=== PATIENT | female | born 1955 | race Caucasian/White ===

== ENCOUNTER → 2016-12-28 | Emergency (ER) | payer OTHER ==
[~2016-12-28] VITALS: Ht 162.5 cm; Wt 90.7 kg
[~2016-12-28] MED LIST: ALBUTEROL0.09 MG/A2 IH; AMBIEN5 MG PO; ARTHROTEC50 MG PO; ATIVAN1 MG PO; B COMPLETE1 EACH PO; BACTRIM DS 8001 TAB PO; BENTYL10 MG PO; CEVIMELINE HCL 30 MG; CIPRO500 MG PO; COREG12.5 MG PO; CYCLOBENZAPRINE5 M3 PO; CYMBALTA30 MG PO; CYMBALTA60 MG PO; DAYPRO600 M1 PO; DESYREL100 MG PO; DICLOFENAC SOD75 MG PO; DULOXETINE HCL DR 60; EVOXAC30 MG PO; FLAGYL500 MG PO; FLEXERIL10 MG PO; FLEXERIL5 MG PO; FLUTICASON0.05 MG/Ac NAS; FUROSEMIDE40 MG PO; GABAPENTIN600 MG PO; HYDROCODONE BIT1 T11 PO; KEFLEX500 MG PO; KLOR-CON M2020 ME1 PO; LEVOTHYROXIN0.125 M1 PO; LEVOTHYROXIN0.125 MG PO; LIDODERM 5% PATC1 EA PO; LOPERAMIDE HCL2 MG PO; LORATADINE D PO; MEDROL DOSEPAK4 MG PO; MICRONIZED COLES1 GM PO; NEURONTIN600 MG PO; NEXIUM40 MG PO; NORCO 5-325 TA1 EACH PO; OSCAL/D,OYSTER250 MG PO; OYSTER SHELL 51 EACH PO; OYSTER SHELL CA1 TA5 PO; PAMELOR10 M1 PO; POTASSIUM CHLO20 ME1 PO; PREDNICOT20 MG PO; PREDNISONE20 MG PO; PROAIR HFA0.09 MG/AC INH; PROZAC20 MG PO; PROZAC40 M1 PO; Percocet 325 MG1 TAB PO; QVAR0.08 MG/AC INH; QVAR40 MCG INH; REGLAN10 MG PO; REGLAN5 MG PO; RESTORIL30 MG PO; ROBAXIN750 MG PO; SEPTRA DS 800 M1 TAB PO; SINGULAIR10 M1 PO; SINGULAIR10 MG PO; SPIRIVA -- 3018 MCG PO; SYNTHROID,LEV125 MCG PO; SYNTHROID0.125 MG PO; TESSALON PERLE100 M1 PO; TESSALON PERLE100 MG PO; TOPICORT0.25% TP; TRAMADOL HCL50 MG PO; TRAZODONE HCL300 MG PO; TRAZODONE HCL50 MG PO; TRAZODONE100 MG PO; ULTRAM50 MG PO; VALIUM10 MG PO; VALIUM5 MG PO; VENTOLIN H0.09 MG/AC INH; VICODIN 5/500 505 MG PO; VICODIN 500 MG-1 TAB PO; VICODIN1 TAB PO; VITAMIN D-32000 UNI1 PO; Ventolin 02.5 MG/3 M INH; WELLBUTRIN100 M1 PO; ZITHROMAX Z PA250 MG PO; ZOFRAN ODT4 MG SL; ZONEGRAN100 MG PO; ZONISAMIDE100 MG PO; [UNRECOGNIZED DRUG - OTHER]; [UNRECOGNIZED DRUG - OTHER] PO; [UNRECOGNIZED DRUG - REMARK]; [UNRECOGNIZED DRUG - REMARK] PO
[2016-12-28 08:57] VITALS: BP 125/81
== END ==
LOC: ED 08:41
DX: R07.9 Chest pain, unspecified (principal); Z98.890 Other specified postprocedural states; Z90.49 Acquired absence of other specified parts of digestive tract; Z98.51 Tubal ligation status; Z79.899 Other long term (current) drug therapy; Z88.6 Allergy status to analgesic agent; Z91.040 Latex allergy status; Z88.7 Allergy status to serum and vaccine; Z88.8 Allergy status to other drugs, medicaments and biological substances; W06.XXXA Fall from bed, initial encounter; Y93.89 Activity, other specified; Y92.89 Other specified places as the place of occurrence of the external cause; Y99.9 Unspecified external cause status

== ENCOUNTER 2017-01-05 14:58 | Inpatient (IN) | payer OTHER ==
[~2017-01-05] VITALS: Ht 162.5 cm; Wt 84.8 kg
[2017-01-05 14:59] VITALS: BP 160/84
[2017-01-05 15:43] LABS: BASO # 0.1 10*3/uL (0.0-0.1); BASO % 0.7 % (0.0-1.0); EOS # 0.1 10*3/uL (0.0-0.4); EOS % 0.7 % (1.0-4.0); HEMATOCRIT 44.5 % (37.0-47.0); HEMOGLOBIN 14.5 g/dl (12.0-16.0); MEAN CORPUSCULAR HGB CONC 32.6 g/dl (33.0-37.0); MEAN PLATELET VOLUME 9.3 fl (9.6-12.3); MONO # 0.5 10*3/uL (0.1-1.0); MONO % 7.2 % (3.0-9.0); NEUT # 4.2 10*3/uL (2.3-7.9); PLATELET COUNT AUTOMATED 231 10*3/uL (130-400); RED CELL DISTRI WIDTH 12.9 % (0-14.5); WHITE BLOOD COUNT 6.8 10*3/uL (4.8-10.8)
[2017-01-05 15:54] LABS: URINE AMPHETAMINES < 1000 (1000ng/ml); URINE BARBITURATES < 200 (200ng/ml); URINE COCAINE < 300 (300ng/ml)
[2017-01-05 16:19] LABS: ALBUMIN 3.2 gm/dl (3.1-4.5); ALKALINE PHOSPHATASE 119 U/L (45-117); BILIRUBIN, TOTAL 0.2 mg/dl (0.2-1.0); BUN 9 mg/dl (7-24); CARBON DIOXIDE 27 mmol/L (21-32); CHLORIDE 105 mmol/L (98-107); EST GLOM FILT AFRICAN AMERICAN > 60 ml/min; GLUCOSE 88 mg/dL (65-99); POTASSIUM 3.6 mmol/L (3.5-5.1); SGOT/AST 11 IU/L (3-35); SGPT/ALT 10 U/L (12-78); SODIUM 143 mmol/L (136-145); TOTAL PROTEIN 7.9 gm/dL (6.4-8.2)
[2017-01-05 16:25] VITALS: BP 137/95
[2017-01-05 16:30] LABS: BILIRUBIN NEGATIVE (NEGATIVE); BLOOD TRACE-INTACT (NEGATIVE); CLARITY SL CLOUDY (CLEAR); COLOR YELLOW (YELLOW); GLUCOSE NEGATIVE (NEGATIVE); KETONE NEGATIVE (NEGATIVE); LEUKO ESTERASE 3+ (NEGATIVE); NITRITE NEGATIVE (NEGATIVE); PROTEIN NEGATIVE (NEGATIVE); SPECIFIC GRAVITY <= 1.005 (1.005-1.030); UROBILINOGEN 0.2 E.U./dl (0.2-1.0)
[2017-01-05 16:39] LABS: EPITHELIAL CELLS TNTC
[2017-01-05 16:40] LABS: BACTERIA TRACE; URINE REFLEX COMMENT YES (NO); WBC 31-40 wbc/hpf (0-5)
[2017-01-05 17:06] VITALS: BP 127/83
[2017-01-05 18:03] LABS: CPK 41 U/L (26-192)
[2017-01-05 18:05] LABS: CKMB < 0.5 ng/ml (0.5-3.6); TROPONIN I < 0.015 ng/ml (<0.045)
[2017-01-05 18:36] VITALS: BP 136/87
[2017-01-05 20:00] VITALS: BP 107/55
[2017-01-06] VITALS: BP 109/62
[2017-01-06 01:08] LABS: CPK 38 U/L (26-192)
[2017-01-06 01:09] LABS: CKMB < 0.5 ng/ml (0.5-3.6); TROPONIN I < 0.015 ng/ml (<0.045)
[2017-01-06 07:00] LABS: BASO % 0.6 % (0.0-1.0); EOS % 0.8 % (1.0-4.0); LYMPH # 1.9 10*3/uL (1.3-4.4); MEAN CELL VOLUME 90.1 fl (81.0-99.0); MEAN CORPUSCULAR HGB 29.4 pg (27.0-31.0); MEAN CORPUSCULAR HGB CONC 32.6 g/dl (33.0-37.0); MEAN PLATELET VOLUME 9.4 fl (9.6-12.3); MONO # 0.5 10*3/uL (0.1-1.0); MONO % 8.6 % (3.0-9.0); NEUT # 2.8 10*3/uL (2.3-7.9); NEUT % 53.2 % (47.0-73.0); PLATELET COUNT AUTOMATED 205 10*3/uL (130-400); RED BLOOD COUNT 4.15 10*6/uL (4.10-5.10); WHITE BLOOD COUNT 5.2 10*3/uL (4.8-10.8)
[2017-01-06 07:01] LABS: HEMATOCRIT 37.4 % (37.0-47.0); HEMOGLOBIN 12.2 g/dl (12.0-16.0)
[2017-01-06 07:08] LABS: ALBUMIN 2.7 gm/dl (3.1-4.5); ALKALINE PHOSPHATASE 99 U/L (45-117); BILIRUBIN, TOTAL 0.2 mg/dl (0.2-1.0); BUN 12 mg/dl (7-24); CARBON DIOXIDE 28 mmol/L (21-32); CHLORIDE 106 mmol/L (98-107); CHOLESTEROL 220 mg/dL (<200); EST GLOM FILT AFRICAN AMERICAN > 60 ml/min; GLUCOSE 88 mg/dL (65-99); HDL CHOLESTEROL 49 mg/dl (40-60); LDL CHOLESTEROL 113 mg/dL (9-159); MAGNESIUM 2.1 mg/dL (1.5-2.1); PHOSPHOROUS 4.4 mg/dL (2.5-4.9); POTASSIUM 3.4 mmol/L (3.5-5.1); SGOT/AST 12 IU/L (3-35); SGPT/ALT 10 U/L (12-78); SODIUM 143 mmol/L (136-145); TOTAL PROTEIN 6.6 gm/dL (6.4-8.2); TRIGLYCERIDES 288 mg/dl (<150); VLDL CHOLESTEROL 58 mg/dL (6-40)
[2017-01-06 07:16] LABS: HEMOGLOBIN A1c 5.4 % (4.8-5.6)
[2017-01-06 07:23] LABS: INTERNATIONAL NORM RATIO 0.9 (2.0-3.5)
[2017-01-06 08:00] VITALS: BP 106/55
[2017-01-06 08:42] LABS: CKMB < 0.5 ng/ml (0.5-3.6); CPK 45 U/L (26-192); TROPONIN I < 0.015 ng/ml (<0.045)
[2017-01-06 08:52] LABS: FOLIC ACID 4.93 ng/mL (>5.38); VITAMIN D, 25-HYDROXY 31.9 ng/mL (30-100)
[2017-01-06] MEDS ORDERED: DIAZEPAM5 MG PO (12:09)
[2017-01-06] MEDS ORDERED: NORTRIPTYLINE H50 M1 PO (12:10)
[2017-01-06] MEDS ORDERED: NORTRIPTYLINE H25 M1 PO (12:10)
[2017-01-07] MEDS ORDERED: NORTRIPTYLINE H50 M1 PO (09:04)
[2017-01-07] MEDS ORDERED: NORTRIPTYLINE H25 M1 PO (09:04)
== END 2017-01-06 12:26 | disposition home health service (06) | DRG 689 ==
LOC: ED 14:58 → 4E 17:16 → EDHOLD 17:16 → 4E 17:48
PROVIDERS: Hospitalist; Registered Nurse
DX: N30.01 Acute cystitis with hematuria (principal); G93.41 Metabolic encephalopathy; E43 Unspecified severe protein-calorie malnutrition; F41.9 Anxiety disorder, unspecified; F32.9 Major depressive disorder, single episode, unspecified; M19.90 Unspecified osteoarthritis, unspecified site; J45.909 Unspecified asthma, uncomplicated; K58.1 Irritable bowel syndrome with constipation; E03.9 Hypothyroidism, unspecified; E78.1 Pure hyperglyceridemia; M81.0 Age-related osteoporosis without current pathological fracture; Z90.49 Acquired absence of other specified parts of digestive tract; Z82.49 Family history of ischemic heart disease and other diseases of the circulatory system; Z83.3 Family history of diabetes mellitus; Z88.6 Allergy status to analgesic agent; Z88.8 Allergy status to other drugs, medicaments and biological substances; Z91.040 Latex allergy status; Z79.51 Long term (current) use of inhaled steroids; Z79.899 Other long term (current) drug therapy; Z68.33 Body mass index [BMI] 33.0-33.9, adult

== ENCOUNTER 2017-01-06 12:02 | Inpatient (IN) | payer OTHER ==
[~2017-01-06] VITALS: Ht 162.5 cm; Wt 89.0 kg
--- NOTE | ~2017-01-06 | WRIGHTHP ---
[place], [place] PATIENT HISTORY AND PHYSICAL EXAM NAME: MUKESH MCKENZIE [facility] #: [id number] UNIT #: [id number] ROOM: 310 DOCTOR: SELVIN MORALES MD BIRTHDATE: [birth year] DOS: 01/06/2017 CHIEF COMPLAINT: "I was confused, I made a mistake, I thought they were just changing my room." HISTORY OF PRESENT ILLNESS: This is a 61-year-old white female who was initially seen on consult on the medical floor. She was admitted due to worsening shortness of breath, but was found to have significant issues with benzodiazepine withdrawal and anxiety. The patient has been a longtime patient of Dr. Villa and most recently by Pao Sandhu at [facility]. She reports a lengthy history of benzodiazepine use and most recently has been on Valium 5 mg 3-4 times a day, but states that it no longer was working. She was experiencing, which she describes as significant anxiety, but seem to be withdrawal symptoms and wanted the dose increased to 10 mg 3 times a day. She misinterprets much of the withdrawal symptoms as anxiety and the hope was to get her to the [facility] to try to wean her off of her benzodiazepines. When she initially presented to the Emergency Room, she was so confused and disjointed and disorganized that she could barely process a conversation. This most likely was because of excess of use of benzodiazepines and sleeping pills. As she has had a chance to clear, she is much more coherent, now verbalizing that she really wants to go home. She is not suicidal or homicidal. She just wants to be home in her own environment. My sense too is she does not like the fact that we are controlling the use of her benzodiazepines here. PAST MEDICAL HISTORY: Remarkable for asthma, depression and anxiety, GERD, hyperlipidemia, hypothyroidism, irritable bowel, mitral valve prolapse, osteoarthritis, osteoporosis, and salivary gland cancer. MENTAL STATUS: The patient is alert and oriented to person, place, and approximate on time issues. Mood does seem to be rather euthymic, but she is very anxious and hyper. She still has processing difficulties and is slow to process conversations, but she does respond a little bit faster today than she did yesterday. There is no hypomania or alvino. There are no auditory or visual hallucinations. No delusions, no paranoia. She denies suicidal thoughts, homicidal thoughts or any self-injurious thoughts and she is forward thinking in her plans. Memory has gaps, but overall most of it is intact. DIAGNOSIS: Major depression, recurrent, severe; panic disorder and benzodiazepine dependence. PLAN: At this point, I have no grounds to keep her here on an involuntary basis. I will go ahead and E-scribe Pamelor scripts since I did adjust the dose upward; however, given the fact that she does seem to be a long-term chronic benzodiazepine user/abuser, I will not write her for any Valium. I will let this be done through her primary psychiatric followup with Pao Phoebe. She will be discharged then today. [place], [place] PATIENT HISTORY AND PHYSICAL EXAM NAME: MUKESH MCKENZIE UNIT #: [id number] ROOM: 310 DOCTOR: SELVIN MORALES MD BIRTHDATE: [birth year] SELVIN MORALES MD CM:HISPHYS:PATIENT HISTORY AND PHYSICAL EXAMINATION 8 SELVIN MORALES MD 01/07/17 0934 interface
--- NOTE | ~2017-01-06 | CON ---
[place], [place] REPORT OF CONSULTATION NAME: [id number] UN[facility] #: [id number] ROOM: 310 DOCTOR: SELVIN MORALES MD BIRTHDATE: [birth year] DOS: 01/06/2017 PSYCHIATRIC CONSULTATION CHIEF COMPLAINT: "I need my Valium back. I'm gonna have a panic attack, I just know it." HISTORY OF PRESENT ILLNESS: This is a 61-year-old female who presented with an alteration in mental status. The patient complained of waking up and not knowing where she was or what day it was. Family was very concerned and felt that she was over-taking many of her psychiatric medications and brought her in for an evaluation. Upon her initial admission here to the hospital, she was found to be very sluggish and had a hard time processing simple conversation. She was admitted to rule out any organic factors and to attempt to stabilize on medication. PAST MEDICAL HISTORY: Remarkable for hyperlipidemia, hypothyroidism, IBS, mitral valve prolapse, osteoporosis, cancer in her salivary glands and also a lengthy history of depression and anxiety. The patient most recently has been seeing Pao Sandhu at the [facility] and prior to that, saw Dr. Villa. MENTAL STATUS: She is alert and oriented to self, place, but not necessarily time. Mood is overwhelmingly depressed with anxious overtones. She has significant thought processing problems and is very slow to respond. She was outwardly tremoring and is very anxious. She endorses multiple neurovegetative symptoms, but is not suicidal or homicidal. There is no alvino or hypomania. There are no acute auditory or visual hallucinations. No delusions, no paranoia. Short-term memory has gaps, otherwise she is intact. DIAGNOSES: Major depression, recurrent, severe, and panic disorder. PLAN: I will restart her back on Valium 10 mg twice daily to try to block the withdrawal symptoms. She does state that the Pamelor she is on has been helpful for her IBS. She is on a low dose for depression. I will adjust it from 20 b.i.d. to 25 in the morning and 50 at night. Discontinue Prozac as this does interact with tricyclics increasing their blood level tremendously. We will stop her sleeping pill as I am fearful that she will gravitate towards anything potentially addictive. I do believe she would benefit from a [facility] admission to further stabilize her on her medication; however, I do not believe at this point in time that we can force an admission as she is not actively suicidal or homicidal. I agree Dr. Cerna should be consulted to engage her in counseling services and also help convince her to come to the [facility]. [place], [place] REPORT OF CONSULTATION NAME: MUKESH MCKENZIE UNIT #: [id number] ROOM: 310 DOCTOR: SELVIN MORALES MD BIRTHDATE: [birth year] SELVIN MORALES MD CM:CONSTR:REPORT OF CONSULTATION 0955 01/09/17 0013 interface
[2017-01-06] MEDS ORDERED: DIAZEPAM5 MG PO (12:09)
[2017-01-06] MEDS ORDERED: NORTRIPTYLINE H25 M1 PO (12:10)
[2017-01-06] MEDS ORDERED: NORTRIPTYLINE H50 M1 PO (12:10)
[2017-01-06 12:52] VITALS: BP 117/69
[2017-01-06 19:56] VITALS: BP 110/65
[2017-01-07 08:17] VITALS: BP 130/69
[2017-01-07] MEDS ORDERED: NORTRIPTYLINE H50 M1 PO (09:04)
[2017-01-07] MEDS ORDERED: NORTRIPTYLINE H25 M1 PO (09:04)
== END 2017-01-07 13:45 | disposition home or self-care (01) | DRG 885 ==
LOC: 3N 12:02
DX: F33.2 Major depressive disorder, recurrent severe without psychotic features (principal); G93.41 Metabolic encephalopathy; N39.0 Urinary tract infection, site not specified; F13.20 Sedative, hypnotic or anxiolytic dependence, uncomplicated; K58.9 Irritable bowel syndrome, unspecified; J45.909 Unspecified asthma, uncomplicated; F41.9 Anxiety disorder, unspecified; K21.9 Gastro-esophageal reflux disease without esophagitis; E78.5 Hyperlipidemia, unspecified; E03.9 Hypothyroidism, unspecified; M19.90 Unspecified osteoarthritis, unspecified site; E78.1 Pure hyperglyceridemia; M81.0 Age-related osteoporosis without current pathological fracture; F41.0 Panic disorder [episodic paroxysmal anxiety]; Z90.49 Acquired absence of other specified parts of digestive tract; Z83.3 Family history of diabetes mellitus; Z82.49 Family history of ischemic heart disease and other diseases of the circulatory system; Z85.89 Personal history of malignant neoplasm of other organs and systems; Z88.6 Allergy status to analgesic agent; Z91.040 Latex allergy status; Z88.7 Allergy status to serum and vaccine; Z88.8 Allergy status to other drugs, medicaments and biological substances; Z79.899 Other long term (current) drug therapy

== ENCOUNTER 2017-01-12 23:27 | Emergency (ER) | payer OTHER ==
[~2017-01-12] VITALS: Ht 162.5 cm; Wt 88.9 kg
[~2017-01-12 23:27] MED LIST changes: +DIAZEPAM5 MG PO; +NORTRIPTYLINE H25 M1 PO; +NORTRIPTYLINE H50 M1 PO
[2017-01-13 00:13] LABS: BASO # 0.1 10*3/uL (0.0-0.1); BASO % 0.8 % (0.0-1.0); EOS # 0.1 10*3/uL (0.0-0.4); EOS % 1.2 % (1.0-4.0); HEMATOCRIT 37.4 % (37.0-47.0); HEMOGLOBIN 12.1 g/dl (12.0-16.0); LYMPH # 2.3 10*3/uL (1.3-4.4); LYMPH % 37.4 % (27.0-41.0); MEAN CELL VOLUME 90.3 fl (81.0-99.0); MEAN CORPUSCULAR HGB 29.2 pg (27.0-31.0); MEAN CORPUSCULAR HGB CONC 32.4 g/dl (33.0-37.0); MEAN PLATELET VOLUME 9.3 fl (9.6-12.3); MONO # 0.4 10*3/uL (0.1-1.0); MONO % 6.6 % (3.0-9.0); NEUT # 3.3 10*3/uL (2.3-7.9); NEUT % 53.7 % (47.0-73.0); PLATELET COUNT AUTOMATED 202 10*3/uL (130-400); RED BLOOD COUNT 4.14 10*6/uL (4.10-5.10); RED CELL DISTRI WIDTH 13.3 % (0-14.5); WHITE BLOOD COUNT 6.1 10*3/uL (4.8-10.8)
[2017-01-13 00:28] LABS: ALBUMIN 2.9 gm/dl (3.1-4.5); ALKALINE PHOSPHATASE 89 U/L (45-117); BILIRUBIN, TOTAL 0.1 mg/dl (0.2-1.0); BUN 11 mg/dl (7-24); CARBON DIOXIDE 29 mmol/L (21-32); CHLORIDE 105 mmol/L (98-107); EST GLOM FILT AFRICAN AMERICAN > 60 ml/min; GLUCOSE 117 mg/dL (65-99); POTASSIUM 3.7 mmol/L (3.5-5.1); SGOT/AST 15 IU/L (3-35); SGPT/ALT 15 U/L (12-78); SODIUM 141 mmol/L (136-145); TOTAL PROTEIN 6.7 gm/dL (6.4-8.2)
[2017-01-13 01:13] LABS: BILIRUBIN NEGATIVE (NEGATIVE); BLOOD TRACE-LYSED (NEGATIVE); CLARITY CLEAR (CLEAR); COLOR YELLOW (YELLOW); GLUCOSE NEGATIVE (NEGATIVE); KETONE NEGATIVE (NEGATIVE); LEUKO ESTERASE 1+ (NEGATIVE); NITRITE NEGATIVE (NEGATIVE); PH 6.5 (5.0-9.0); PROTEIN NEGATIVE (NEGATIVE); SPECIFIC GRAVITY <= 1.005 (1.005-1.030); UROBILINOGEN 0.2 E.U./dl (0.2-1.0)
[2017-01-13 01:29] LABS: BACTERIA 1+; URINE REFLEX COMMENT YES (NO)
== END 2017-01-13 02:21 | disposition home or self-care (01) ==
LOC: ED 23:27
PROVIDERS: Student in an Organized Health Care Education/Training Program
DX: S22.32XA Fracture of one rib, left side, initial encounter for closed fracture (principal); F41.9 Anxiety disorder, unspecified; J45.909 Unspecified asthma, uncomplicated; K21.9 Gastro-esophageal reflux disease without esophagitis; M19.90 Unspecified osteoarthritis, unspecified site; F32.9 Major depressive disorder, single episode, unspecified; E03.9 Hypothyroidism, unspecified; Z88.6 Allergy status to analgesic agent; Z88.8 Allergy status to other drugs, medicaments and biological substances; Z91.040 Latex allergy status; Z79.899 Other long term (current) drug therapy; W06.XXXA Fall from bed, initial encounter; Y93.89 Activity, other specified; Y92.89 Other specified places as the place of occurrence of the external cause; Y99.8 Other external cause status

== ENCOUNTER 2017-02-28 22:24 | Emergency (ER) | payer OTHER ==
[~2017-02-28] VITALS: Ht 162.5 cm; Wt 91.6 kg
[2017-02-28 22:42] VITALS: BP 137/76
== END 2017-02-28 23:38 | disposition home or self-care (01) ==
LOC: ED 22:24
DX: K08.89 Other specified disorders of teeth and supporting structures (principal); Z88.6 Allergy status to analgesic agent; Z88.7 Allergy status to serum and vaccine; Z88.8 Allergy status to other drugs, medicaments and biological substances; Z91.040 Latex allergy status; Z79.899 Other long term (current) drug therapy

== ENCOUNTER → 2017-05-12 | Outpatient (CLI) | payer OTHER ==
[2017-05-12 08:57] LABS: BASO % 0.7 % (0.0-1.0); EOS # 0.1 10*3/uL (0.0-0.4); EOS % 0.8 % (1.0-4.0); HEMATOCRIT 40.7 % (37.0-47.0); HEMOGLOBIN 12.9 g/dl (12.0-16.0); LYMPH # 1.9 10*3/uL (1.3-4.4); LYMPH % 32.5 % (27.0-41.0); MEAN CELL VOLUME 89.5 fl (81.0-99.0); MEAN CORPUSCULAR HGB 28.4 pg (27.0-31.0); MEAN CORPUSCULAR HGB CONC 31.7 g/dl (33.0-37.0); MEAN PLATELET VOLUME 9.9 fl (9.6-12.3); MONO # 0.4 10*3/uL (0.1-1.0); MONO % 7.3 % (3.0-9.0); NEUT # 3.5 10*3/uL (2.3-7.9); NEUT % 58.5 % (47.0-73.0); PLATELET COUNT AUTOMATED 184 10*3/uL (130-400); RED BLOOD COUNT 4.55 10*6/uL (4.10-5.10); RED CELL DISTRI WIDTH 13.8 % (0-14.5); WHITE BLOOD COUNT 5.9 10*3/uL (4.8-10.8)
[2017-05-12 09:24] LABS: ALBUMIN 3.7 gm/dl (3.1-4.5); BILIRUBIN, TOTAL 0.3 mg/dl (0.2-1.0); FREE T4 0.97 ng/dl (0.76-1.46); POTASSIUM 4.4 mmol/L (3.5-5.1); TOTAL PROTEIN 7.4 gm/dL (6.4-8.2)
[2017-05-12 09:28] LABS: THYROID STIM HORMONE (HS) 4.78 uIU/ml (0.358-4.75)
== END | disposition home or self-care (01) ==
LOC: LAB 08:39
PROVIDERS: Internal Medicine
DX: E03.9 Hypothyroidism, unspecified (principal); E55.9 Vitamin D deficiency, unspecified; E66.2 Morbid (severe) obesity with alveolar hypoventilation

== ENCOUNTER 2017-06-26 12:43 | Emergency (ER) | payer OTHER ==
[~2017-06-26] VITALS: Ht 162.5 cm; Wt 95.7 kg
[2017-06-26 13:02] VITALS: BP 157/86
[2017-06-26 13:26] LABS: BASO % 0.7 % (0.0-1.0); EOS # 0.1 10*3/uL (0.0-0.4); EOS % 1.4 % (1.0-4.0); HEMATOCRIT 37.9 % (37.0-47.0); HEMOGLOBIN 12.6 g/dl (12.0-16.0); LYMPH # 1.4 10*3/uL (1.3-4.4); LYMPH % 31.8 % (27.0-41.0); MEAN CELL VOLUME 90.9 fl (81.0-99.0); MEAN CORPUSCULAR HGB 30.2 pg (27.0-31.0); MEAN CORPUSCULAR HGB CONC 33.2 g/dl (33.0-37.0); MEAN PLATELET VOLUME 9.6 fl (9.6-12.3); MONO # 0.3 10*3/uL (0.1-1.0); NEUT # 2.6 10*3/uL (2.3-7.9); NEUT % 58.9 % (47.0-73.0); PLATELET COUNT AUTOMATED 187 10*3/uL (130-400); RED BLOOD COUNT 4.17 10*6/uL (4.10-5.10); RED CELL DISTRI WIDTH 14.1 % (0-14.5); WHITE BLOOD COUNT 4.4 10*3/uL (4.8-10.8)
[2017-06-26 13:44] LABS: ALBUMIN 3.6 gm/dl (3.1-4.5); ALKALINE PHOSPHATASE 87 U/L (45-117); BUN 13 mg/dl (7-24); CHLORIDE 107 mmol/L (98-107); CREATININE 1.11 mg/dL (0.55-1.02); SGOT/AST 20 IU/L (3-35); SGPT/ALT 24 U/L (12-78); SODIUM 141 mmol/L (136-145); TOTAL PROTEIN 7.4 gm/dL (6.4-8.2)
[2017-06-26 14:27] LABS: BILIRUBIN NEGATIVE (NEGATIVE); BLOOD NEGATIVE (NEGATIVE); CLARITY CLEAR (CLEAR); COLOR YELLOW (YELLOW); GLUCOSE NEGATIVE (NEGATIVE); KETONE NEGATIVE (NEGATIVE); LEUKO ESTERASE 1+ (NEGATIVE); NITRITE NEGATIVE (NEGATIVE); UROBILINOGEN 0.2 E.U./dl (0.2-1.0)
[2017-06-26 14:35] LABS: BACTERIA 1+; EPITHELIAL CELLS 0-2; RBC 0-2 rbc/hpf (0-2)
== END 2017-06-26 16:11 | disposition home or self-care (01) ==
LOC: ED 12:43
PROVIDERS: Nurse Practitioner Family
DX: K62.5 Hemorrhage of anus and rectum (principal); R91.1 Solitary pulmonary nodule; R03.0 Elevated blood-pressure reading, without diagnosis of hypertension; Z88.6 Allergy status to analgesic agent; Z88.7 Allergy status to serum and vaccine; Z88.8 Allergy status to other drugs, medicaments and biological substances; Z79.899 Other long term (current) drug therapy

== ENCOUNTER → 2017-12-07 | Outpatient (CLI) | payer OTHER ==
[2017-12-07 13:30] LABS: BASO % 0.7 % (0.0-1.0); EOS # 0.1 10*3/uL (0.0-0.4); EOS % 0.8 % (1.0-4.0); HEMATOCRIT 42.8 % (37.0-47.0); HEMOGLOBIN 13.4 g/dl (12.0-16.0); LYMPH # 1.7 10*3/uL (1.3-4.4); LYMPH % 28.2 % (27.0-41.0); MEAN CELL VOLUME 89.7 fl (81.0-99.0); MEAN CORPUSCULAR HGB 28.1 pg (27.0-31.0); MEAN CORPUSCULAR HGB CONC 31.3 g/dl (33.0-37.0); MEAN PLATELET VOLUME 9.5 fl (9.6-12.3); MONO # 0.4 10*3/uL (0.1-1.0); MONO % 6.7 % (3.0-9.0); NEUT # 3.9 10*3/uL (2.3-7.9); NEUT % 63.3 % (47.0-73.0); PLATELET COUNT AUTOMATED 207 10*3/uL (130-400); RED BLOOD COUNT 4.77 10*6/uL (4.10-5.10); RED CELL DISTRI WIDTH 13.8 % (0-14.5); WHITE BLOOD COUNT 6.1 10*3/uL (4.8-10.8)
[2017-12-07 13:46] LABS: ALBUMIN 3.4 gm/dl (3.1-4.5); CREATININE 1.15 mg/dL (0.55-1.02); POTASSIUM 4.2 mmol/L (3.5-5.1); TOTAL PROTEIN 7.7 gm/dL (6.4-8.2)
== END | disposition home or self-care (01) ==
LOC: LAB 12:55
PROVIDERS: Internal Medicine
DX: E55.9 Vitamin D deficiency, unspecified (principal); E03.9 Hypothyroidism, unspecified; I10 Essential (primary) hypertension; E66.09 Other obesity due to excess calories

== ENCOUNTER → 2018-01-29 | Outpatient (CLI) | payer OTHER | END | disposition home or self-care (01) | LOC: RAD 13:43 | DX: M25.512 Pain in left shoulder (principal); M25.612 Stiffness of left shoulder, not elsewhere classified ==

== ENCOUNTER → 2018-05-11 | Day surgery (SDC) | payer OTHER ==
[~2018-05-11] VITALS: Ht 162.5 cm; Wt 90.7 kg
[~2018-05-11] MED LIST changes: +SIMVASTATIN40 MG PO; +SLEEP AID25 M1 PO; +SLEEP AID25 M2 PO
--- NOTE | ~2018-05-11 | PROC NOTE ---
[place], [place] PROCEDURE NOTE NAME: MUKESH MCKENZIE [facility] #: [id number] UNIT #: [id number] ROOM: DOCTOR: NIRANJAN ONOFRE,JULIO BIRTHDATE: [birth year] DOS: 05/11/2018 PROCEDURE: Colonoscopy and biopsy. INDICATION: Diarrhea. An informed consent was obtained from the patient after indication of procedure, the alternatives and potential complications were explained to her. PROCEDURE MEDICATION: Sedation was administered by Anesthesiology Department. Scope used was Olympus pediatric colonoscope variable stiffness GIF-180, depth of insertion was to the cecum, which was identified by the usual landmarks, appendiceal orifice, ileocecal valve and triangular fold. FINDINGS: After adequate sedation, the patient was placed in left lateral decubitus position. Rectal examination showed a normal sphincter tone and no external hemorrhoids. The scope was introduced into the rectum, then advanced to the cecum with no difficulty. The prep was adequate. The colon mucosa showed mild left-sided diverticular disease, normal mucosa otherwise. Random biopsies were obtained from the right and left colon to rule out microscopic colitis. Retroflex views in the rectum were unremarkable. The scope was then withdrawn after the rectum was decompressed. The patient tolerated the procedure well. IMPRESSION: 1. Mild left-sided diverticular disease. 2. Normal colon mucosa otherwise, random biopsies obtained. PLAN: We will review the histopathology reports and treat the patient accordingly. Repeat screening colonoscopy advised in 5 years. Office followup will be scheduled in 2-3 weeks. JULIO UREÑA MD CM:PROCNOTE:PROCEDURE NOTE [id number] EMILY THOMPSON MD
[2018-05-11 09:03] VITALS: BP 125/66
[2018-05-11 09:15] VITALS: BP 116/67
[2018-05-11 09:30] VITALS: BP 126/63
== END ==
LOC: SDC 05-07 09:30
DX: K58.0 Irritable bowel syndrome with diarrhea (principal); K57.30 Diverticulosis of large intestine without perforation or abscess without bleeding; I10 Essential (primary) hypertension; I25.2 Old myocardial infarction; I25.10 Atherosclerotic heart disease of native coronary artery without angina pectoris; E11.9 Type 2 diabetes mellitus without complications; K21.9 Gastro-esophageal reflux disease without esophagitis; E78.5 Hyperlipidemia, unspecified; E07.9 Disorder of thyroid, unspecified; J45.909 Unspecified asthma, uncomplicated; M81.0 Age-related osteoporosis without current pathological fracture; G43.909 Migraine, unspecified, not intractable, without status migrainosus; F41.8 Other specified anxiety disorders; E66.9 Obesity, unspecified; Z68.34 Body mass index [BMI] 34.0-34.9, adult; Z98.51 Tubal ligation status; Z90.49 Acquired absence of other specified parts of digestive tract; Z88.6 Allergy status to analgesic agent; Z88.8 Allergy status to other drugs, medicaments and biological substances; Z91.040 Latex allergy status; Z91.09 Other allergy status, other than to drugs and biological substances; Z85.818 Personal history of malignant neoplasm of other sites of lip, oral cavity, and pharynx; Z87.11 Personal history of peptic ulcer disease; Z86.010 Personal history of colon polyps; Z79.899 Other long term (current) drug therapy; Z80.9 Family history of malignant neoplasm, unspecified; Z82.49 Family history of ischemic heart disease and other diseases of the circulatory system

== ENCOUNTER 2018-07-12 16:25 | Emergency (ER) | payer OTHER ==
[~2018-07-12] VITALS: Ht 162.5 cm; Wt 90.7 kg
[2018-07-12 19:29] VITALS: BP 128/70
== END 2018-07-12 20:15 | disposition home or self-care (01) ==
LOC: ED 16:25
DX: S20.211A Contusion of right front wall of thorax, initial encounter (principal); S80.02XA Contusion of left knee, initial encounter; S80.01XA Contusion of right knee, initial encounter; Z88.6 Allergy status to analgesic agent; Z91.040 Latex allergy status; Z88.8 Allergy status to other drugs, medicaments and biological substances; Z79.899 Other long term (current) drug therapy; W01.198A Fall on same level from slipping, tripping and stumbling with subsequent striking against other object, initial encounter; Y93.89 Activity, other specified; Y92.89 Other specified places as the place of occurrence of the external cause; Y99.8 Other external cause status

== ENCOUNTER 2019-07-01 19:33 | Emergency (ER) | payer OTHER ==
[~2019-07-01] VITALS: Ht 162.5 cm; Wt 90.7 kg
[2019-07-01 19:37] VITALS: BP 122/77
[2019-07-01] MEDS ORDERED: PENICILLIN-VK500 MG PO (20:45)
== END 2019-07-01 21:30 | disposition home or self-care (01) ==
LOC: ED 19:33
DX: K08.89 Other specified disorders of teeth and supporting structures (principal); Z98.51 Tubal ligation status; Z98.890 Other specified postprocedural states; Z79.899 Other long term (current) drug therapy; Z88.6 Allergy status to analgesic agent; Z91.040 Latex allergy status; Z88.7 Allergy status to serum and vaccine; Z88.8 Allergy status to other drugs, medicaments and biological substances

== ENCOUNTER 2019-10-11 15:09 | Inpatient (IN) | payer OTHER ==
[~2019-10-11] VITALS: Ht 162.5 cm; Wt 95.4 kg
[~2019-10-11 15:09] MED LIST changes: +PENICILLIN-VK500 MG PO
[2019-10-11 15:23] VITALS: BP 113/83
[2019-10-11 20:00] VITALS: BP 146/92
[2019-10-11 21:35] LABS: BASO # 0.1 10*3/uL (0.0-0.1); BASO % 0.5 % (0.0-1.0); EOS % 0.1 % (1.0-4.0); HEMATOCRIT 39.5 % (37.0-47.0); HEMOGLOBIN 12.5 g/dl (12.0-16.0); LYMPH # 1.1 10*3/uL (1.3-4.4); LYMPH % 11.3 % (27.0-41.0); MEAN CORPUSCULAR HGB 28.5 pg (27.0-31.0); MEAN CORPUSCULAR HGB CONC 31.6 g/dl (33.0-37.0); MEAN PLATELET VOLUME 9.1 fl (9.6-12.3); MONO # 0.5 10*3/uL (0.1-1.0); MONO % 5.5 % (3.0-9.0); NEUT # 7.9 10*3/uL (2.3-7.9); NEUT % 82.3 % (47.0-73.0); PLATELET COUNT AUTOMATED 187 10*3/uL (130-400); RED BLOOD COUNT 4.39 10*6/uL (4.10-5.10); RED CELL DISTRI WIDTH 13.7 % (0-14.5); WHITE BLOOD COUNT 9.6 10*3/uL (4.8-10.8)
[2019-10-11 21:40] VITALS: BP 146/92
[2019-10-11 21:52] LABS: ALBUMIN 3.1 gm/dl (3.1-4.5); ALKALINE PHOSPHATASE 96 U/L (45-117); BUN 10 mg/dl (7-24); CHLORIDE 109 mmol/L (98-107); CREATININE 0.98 mg/dL (0.55-1.02); POTASSIUM 3.8 mmol/L (3.5-5.1); SGOT/AST 18 IU/L (3-35); SGPT/ALT 18 U/L (12-78); SODIUM 141 mmol/L (136-145); TOTAL PROTEIN 6.8 gm/dL (6.4-8.2)
[2019-10-11 22:00] VITALS: BP 146/92
[2019-10-11] MEDS ORDERED: GNP FISH OIL 11 EAC1 PO (22:12)
[2019-10-12] VITALS: BP 130/71
[2019-10-12 06:35] LABS: BASO % 0.5 % (0.0-1.0); EOS % 0.5 % (1.0-4.0); HEMATOCRIT 39.2 % (37.0-47.0); HEMOGLOBIN 12.3 g/dl (12.0-16.0); LYMPH # 1.2 10*3/uL (1.3-4.4); LYMPH % 19.4 % (27.0-41.0); MEAN CORPUSCULAR HGB 28.5 pg (27.0-31.0); MEAN CORPUSCULAR HGB CONC 31.4 g/dl (33.0-37.0); MEAN PLATELET VOLUME 9.2 fl (9.6-12.3); MONO # 0.6 10*3/uL (0.1-1.0); MONO % 9.1 % (3.0-9.0); NEUT # 4.5 10*3/uL (2.3-7.9); NEUT % 70.3 % (47.0-73.0); PLATELET COUNT AUTOMATED 193 10*3/uL (130-400); RED BLOOD COUNT 4.31 10*6/uL (4.10-5.10); RED CELL DISTRI WIDTH 13.8 % (0-14.5); WHITE BLOOD COUNT 6.4 10*3/uL (4.8-10.8)
[2019-10-12 06:57] LABS: BUN 11 mg/dl (7-24); CHLORIDE 108 mmol/L (98-107); CREATININE 0.91 mg/dL (0.55-1.02); PHOSPHOROUS 2.9 mg/dL (2.5-4.9); POTASSIUM 3.7 mmol/L (3.5-5.1); SODIUM 140 mmol/L (136-145)
[2019-10-12 08:00] VITALS: BP 112/64
[2019-10-12 12:00] VITALS: BP 121/72
[2019-10-12 16:00] VITALS: BP 135/72
[2019-10-12 20:00] VITALS: BP 123/80
[2019-10-13] VITALS: BP 133/66
[2019-10-13 08:00] VITALS: BP 137/65
[2019-10-13 12:00] VITALS: BP 146/67
[2019-10-13 16:00] VITALS: BP 159/65
[2019-10-13 20:00] VITALS: BP 136/85
[2019-10-14] VITALS: BP 142/55
[2019-10-14 08:00] VITALS: BP 142/68
[2019-10-14] MEDS ORDERED: AUGMENTIN 875875 MG PO (11:25)
[2019-10-14] MEDS ORDERED: Bactroban Oint22 GM T (11:25)
[2019-10-14] MEDS ORDERED: HYDROCODONE-AC1 EAC1 PO (11:25)
== END 2019-10-14 11:38 | disposition home or self-care (01) | DRG 605 ==
LOC: ED → 5E 18:41 → EDHOLD 18:41 → 5E 19:00
PROVIDERS: Internal Medicine; ADMIT Family Medicine
DX: S41.152A Open bite of left upper arm, initial encounter (principal); S41.151A Open bite of right upper arm, initial encounter; S81.852A Open bite, left lower leg, initial encounter; S31.159A Open bite of abdominal wall, unspecified quadrant without penetration into peritoneal cavity, initial encounter; F41.9 Anxiety disorder, unspecified; K58.9 Irritable bowel syndrome, unspecified; J45.909 Unspecified asthma, uncomplicated; E03.9 Hypothyroidism, unspecified; F32.9 Major depressive disorder, single episode, unspecified; K21.9 Gastro-esophageal reflux disease without esophagitis; W54.0XXA Bitten by dog, initial encounter; Z83.3 Family history of diabetes mellitus; Y93.89 Activity, other specified; Y92.89 Other specified places as the place of occurrence of the external cause; Y99.8 Other external cause status; Z82.49 Family history of ischemic heart disease and other diseases of the circulatory system; Z88.6 Allergy status to analgesic agent; Z88.8 Allergy status to other drugs, medicaments and biological substances; Z91.040 Latex allergy status; Z79.899 Other long term (current) drug therapy; Z90.49 Acquired absence of other specified parts of digestive tract; Z85.89 Personal history of malignant neoplasm of other organs and systems

== ENCOUNTER 2019-10-22 08:33 | Inpatient (IN) | payer OTHER ==
[~2019-10-22] VITALS: Ht 162.5 cm; Wt 94.0 kg
[~2019-10-22 08:33] MED LIST changes: +AUGMENTIN 875875 MG PO; +Bactroban Oint22 GM T; +GNP FISH OIL 11 EAC1 PO; +HYDROCODONE-AC1 EAC1 PO
[2019-10-22 08:49] VITALS: BP 139/67
[2019-10-22 09:50] LABS: BASO # 0.1 10*3/uL (0.0-0.1); BASO % 0.8 % (0.0-1.0); EOS # 0.1 10*3/uL (0.0-0.4); HEMATOCRIT 37.6 % (37.0-47.0); HEMOGLOBIN 11.7 g/dl (12.0-16.0); LYMPH # 1.6 10*3/uL (1.3-4.4); LYMPH % 27.1 % (27.0-41.0); MEAN CELL VOLUME 91.7 fl (81.0-99.0); MEAN CORPUSCULAR HGB 28.5 pg (27.0-31.0); MEAN CORPUSCULAR HGB CONC 31.1 g/dl (33.0-37.0); MEAN PLATELET VOLUME 9.3 fl (9.6-12.3); MONO # 0.4 10*3/uL (0.1-1.0); MONO % 5.8 % (3.0-9.0); NEUT # 3.9 10*3/uL (2.3-7.9); PLATELET COUNT AUTOMATED 288 10*3/uL (130-400); RED CELL DISTRI WIDTH 14.2 % (0-14.5)
[2019-10-22 10:05] LABS: ALBUMIN 3.2 gm/dl (3.1-4.5); ALKALINE PHOSPHATASE 87 U/L (45-117); BUN 8 mg/dl (7-24); CHLORIDE 110 mmol/L (98-107); POTASSIUM 3.5 mmol/L (3.5-5.1); SGOT/AST 11 IU/L (3-35); SGPT/ALT 17 U/L (12-78); SODIUM 141 mmol/L (136-145); TOTAL PROTEIN 7.2 gm/dL (6.4-8.2)
[2019-10-22 12:00] VITALS: BP 119/71
--- NOTE | 2019-10-22 13:00 | NUR ---
Time: 1300 A 63 year old FEMALE admitted to 5E under services of JOON MYRICK DO. Pt. arrived via bed from ER. Chief complaint: ITCHING AND BLEEDING TO WOUNDS (DOG BITES0. HANNAH DOMÍNGUEZ
[2019-10-22] MEDS ORDERED: TRINTELLIX10 MG PO (14:25)
[2019-10-22] MEDS ORDERED: DIAZEPAM10 M1 PO (14:25)
[2019-10-22] MEDS ORDERED: Synthroid,Levo75 MCG PO (14:28)
[2019-10-22] MEDS ORDERED: SIMVASTATIN20 MG PO (14:29)
[2019-10-22] MEDS ORDERED: VENT7GM INH (14:31)
[2019-10-22 16:00] VITALS: BP 134/74
[2019-10-22 20:00] VITALS: BP 115/60
--- NOTE | 2019-10-22 20:10 | NUR ---
PATIENT IS RESTING IN BED WITH EASY AND REGULAR RESPERS ON ROOM AIR. ASSESSMENT IS COMPLETE WITH NO C/O OR S/S OF DISTRESS NOTED AT THIS TIME. BED IS LOW, LOCKED, AND CALL LIGHT IS WITHIN REACH. DRESSING TO LEFT LEG REIENFORCED AT THIS TIME. WILL CONTINUE TO MONITOR, SEE SHIFT ASSESSMENT.
[2019-10-22] MEDS ORDERED: ZONISAMIDE100 MG PO (22:01)
--- NOTE | 2019-10-22 22:04 | NUR ---
DR. MITTAL CALLED AT THIS TIME IN REGARDS TO PATIENT TAKING ZONSIMIDE AT BEDTIME AT HOME. ORDERED TO CONTINUE MEDICATION.
--- NOTE | 2019-10-22 22:39 | NUR ---
UNABLE TO CONTINUE HOME MEDICATION D/T NOT BEING AVALIABLE FROM PHARMACY. PATIENT IS AWARE.
[2019-10-23] VITALS: BP 126/76
--- NOTE | 2019-10-23 06:00 | NUR ---
PATIENT SLEPT PEACEFULL THROUGHOUT THE NIGHT. ARISES EASILY FOR ADMINISTRATION OF AM MEDICATIONS. CLAM SORTER IN TO SEE PATIENT. NEW DRESSINGS APPLIED AFTER ASSESSMENT. CALL LIGHT IS WITHIN REACH.
--- NOTE | 2019-10-23 06:16 | NUR ---
MUKESH MCKENZIE [id number] Please refer to the physician's history and physical for past medical history, comorbid conditions, and allergies. Diagnosis: CELLULITIS FAILURE OF OUTPATIENT TREATMENT Pete Score: 23,LOW OR NO RISK WOUND DESCRIPTIONS: Wound Number: 1 Location of the wound: Left arm by elbow Type of wound: Traumatic ( dog bites ) Thickness: partial Size: 21.5cm X 12.0cm X 0.1cm Tunneling: none Undermining: none Sinus Tract: none Presence of Exudate: none Amount: none Color: Red, brown Odor: None Periwound Skin Appearance: Erythema Wound edges: approximated with 3 sutures Pain (associated with wound): tender to touch How does patient state this happened? Patient stated she was attacked by four dogs. Wound Number: 2 Location of the wound: Left lower extremity Type of wound: Traumatic ( dog bites ) Thickness: Full Size: 6.0cm X 10.7cm X 0.1cm Tunneling: none Undermining: none Sinus Tract: none Presence of Exudate: none Amount: none Color: Red, yellow, black Odor: None Periwound Skin Appearance: Erythema Wound edges: approximated Pain (associated with wound): tender to touch How does patient state this happened? Patient stated she was attacked by four dogs. Wound Number: 3 Location of the wound: Left lateral calf Type of wound: Traumatic ( dog bites ) Thickness: Full Size: 1.5cm X 3.3cm X 0.1cm Tunneling: none Undermining: none Sinus Tract: none Presence of Exudate: none Amount: none Color: Red, yellow, black Odor: None Periwound Skin Appearance: Erythema and blachable Wound edges: approximated Pain (associated with wound): tender to touch How does patient state this happened? Patient stated she was attacked by four dogs. Wound Number: 4 Location of the wound: Left lateral hip Type of wound: Traumatic ( dog bites ) Thickness: Partial Size: 1.0cm X 4.0cm X 0.1cm Tunneling: none Undermining: none Sinus Tract: none Presence of Exudate: none Amount: none Color: Red, brown Odor: None Periwound Skin Appearance: Erythema Wound edges: approximated Pain (associated with wound): tender to touch How does patient state this happened? Patient stated she was attacked by four dogs. Wound Number: 5 & 6 Location of the wound: right upper arm Type of wound: Traumatic ( dog bites ) Thickness: Full Size: 19.0cm X 20.5cm X 0.1cm Tunneling: none Undermining: none Sinus Tract: none Presence of Exudate: none Amount: none Color: Red, yellow, brown Odor: None Periwound Skin Appearance: Erythema and ecchymotic Wound edges: approximated with 21 stitches Pain (associated with wound): tender to touch How does patient state this happened? Patient stated she was attacked by four dogs. Wound Number: 7 Location of the wound: Left flank Type of wound: Traumatic ( dog bites ) Thickness: Partial Size: 2cm X 0.4cm X 0.1cm Tunneling: none Undermining: none Sinus Tract: none Presence of Exudate: none Amount: none Color: Red, yellow Odor: None Periwound Skin Appearance: Erythema and blachable Wound edges: approximated Pain (associated with wound): tender to touch How does patient state this happened? Patient stated she was attacked by four dogs. Surface the patient is resting on: Isoflex SKIN PREVENTION RECOMMENDATION: 1. Pressure redistribution support surface as appropriate 2. Elevate heels 3. Remove boots/TEDS every shift and reapply 4. Head of bed 30 degrees as tolerated 5. Assess nutrition and hydration 6. Manage moisture 7. Avoid the use of containment devices while in bed 8. Use absorptive products on surfaces limit layers of linens on bed 9. Turn and reposition every 1-2 hours in bed and every 1 hour in chair as tolerated 10. Weight shifts every 15 minutes while up in chair 11. Offloading with pillows or device to keep heels elevated off bed 12. Monitor skin at least every shift 13. Inspect under medical devices twice a day WOUND TREATMENT RECOMMENDATIONS: Cleanse bilateral arms, left upper thigh, left lower leg and left flank with nss apply bactroban to all wounds and cover with non-adherent dry sterile dressing daily and prn for soiling. Arterial studies to BLE's due to non-healing wounds. Consult podiatry for possible debridement of left lower leg. Patient is requesting to follow up in the wound care center upon discharge. Heel raiser pro boots while in bed.
[2019-10-23 06:59] LABS: BASO # 0.1 10*3/uL (0.0-0.1); BASO % 0.9 % (0.0-1.0); EOS # 0.1 10*3/uL (0.0-0.4); EOS % 1.1 % (1.0-4.0); HEMATOCRIT 36.4 % (37.0-47.0); HEMOGLOBIN 11.2 g/dl (12.0-16.0); LYMPH % 36.8 % (27.0-41.0); MEAN CELL VOLUME 92.9 fl (81.0-99.0); MEAN CORPUSCULAR HGB 28.6 pg (27.0-31.0); MEAN CORPUSCULAR HGB CONC 30.8 g/dl (33.0-37.0); MEAN PLATELET VOLUME 9.5 fl (9.6-12.3); MONO # 0.4 10*3/uL (0.1-1.0); MONO % 6.8 % (3.0-9.0); NEUT # 2.9 10*3/uL (2.3-7.9); PLATELET COUNT AUTOMATED 267 10*3/uL (130-400); RED BLOOD COUNT 3.92 10*6/uL (4.10-5.10); RED CELL DISTRI WIDTH 14.2 % (0-14.5); WHITE BLOOD COUNT 5.3 10*3/uL (4.8-10.8)
[2019-10-23 07:03] LABS: CREATININE 1.28 mg/dL (0.55-1.02); POTASSIUM 3.9 mmol/L (3.5-5.1)
--- NOTE | 2019-10-23 07:18 | NUR ---
PATIENT MEDICATED WITH PO NORCO FOR PAIN IN HER ARMS AFTER DRESSING CHANGES RATED 4/10.
[2019-10-23 08:00] VITALS: BP 136/80
--- NOTE | 2019-10-23 09:02 | NUR ---
Follow up with Veda TORRES in wound care clinic on 10/28/19 @ 9:00am, call [phone] with any concerns
--- NOTE | 2019-10-23 09:29 | NUR ---
Dr. Hurtado notified of wound care recommendations.
--- NOTE | 2019-10-23 10:30 | NUR ---
Senior Logistics Manager in to talk to patient. Patient states lives at home alone. There are 0 steps in the home. Physician: Dr. Cassy Cho Pharmacy: [facility] Home health services: She is currently working with her [facility] Senior Logistics Manager, Kylee, to have home health aides. Patient's level of ADLs: MINIMAL ASSIST Patient has working utilities: yes DME: cane, O2 @ 2-3L nc, portable tank, nebulizer Follow-up physician's appointment after d/c: will be made by the hospitalist nurse director upon discharge Does patient want to access PORTAL?: no Discharge plan discussed with patient. She states she lives at home alone. She is independent in her ADLs and ambulates with a cane. She drives. Discussed home health care services and she denies any home needs at this time. She does come to the [facility] for dressing changes to her arm. She states her home O2 is a portable tank she was given by a friend. Discussed the tragedies in her life from her stating she found her father up to her dog attack. When medically stable she will be discharged to home. She states she will drive herself home as she drove herself here to the hospital. JIMMY CORDOVA
[2019-10-23 12:00] VITALS: BP 127/76
[2019-10-23 16:00] VITALS: BP 121/63
[2019-10-23] MEDS ORDERED: DOXYCYCLINE100 M3 PO (16:03)
[2019-10-23] MEDS ORDERED: AUGMENTIN 875-875 MG PO (16:03)
--- NOTE | 2019-10-23 17:40 | NUR ---
Discharge instructions reviewed with patient/family. Patient receptive and verbalizes understanding. Follow-up care arranged. Written instructions given to patient/family. HEPLOCK DISCONTINUED. PATIENT REFUSED WOUND PHOTOS IT WAS UNNECESSARY BEING THAT THEY WERE JUST CHANGED. PT AWARE OF NEW MEDS. TAKEN OFF FLOOR BY WHEELCHAIR. HANNAH DOMÍNGUEZ
--- NOTE | 2019-10-23 20:22 | NUR ---
PATIENT CALLED INTO NURSES STATION TO ASK ABOUT DISCHARGE PAPERWORK. PATIENT STATES THAT SHE IS CONFUSED BY THE INSTRUCTIONS FOR APPOINTMENTS. SHE STATED THAT SHE DIDN'T UNDERSTAND WHEN HER FOLLOW UP APPOINTMENTS WERE. REREAD INSTRUCTIONS TO PATIENT AND APPOINTMENT DATE AND TIMES WITH PATIENT AND SHE REREAD BACK WHEN AND WHAT TIME SHE WILL BE NEEDING TO SEE THE DOCTORS. SHE STATED THAT SHE WAS SCARED OF GETTING AN INFECTION. THIS NURSE ASKED IF SHE HAD RECIEVED HER ANTIBIOTICS. SHE STATED THAT THAT WAS ALL TAKEN CARE OF AND SHE HAD ALREADY TAKEN HER ANTIBIOTICS FOR THE EVENING. EXPLAINED TO THE PATIENT THAT SHE WILL NEED TO RETURN TO THE HOSPITAL TO GET TO THE WOUND CARE CLINIC TO SEE MARCO HERNÁNDEZ. PATIENT VERABLIZED UNDERSTANDING
== END 2019-10-23 17:40 | disposition home or self-care (01) | DRG 603 ==
LOC: ED 08:33 → EDHOLD 11:47 → 5E 11:47
PROVIDERS: Internal Medicine; Nurse Practitioner Family; ADMIT Family Medicine
DX: L03.114 Cellulitis of left upper limb (principal); E44.0 Moderate protein-calorie malnutrition; L03.119 Cellulitis of unspecified part of limb; L03.113 Cellulitis of right upper limb; W54.0XXA Bitten by dog, initial encounter; D64.9 Anemia, unspecified; E87.8 Other disorders of electrolyte and fluid balance, not elsewhere classified; N18.9 Chronic kidney disease, unspecified; R73.9 Hyperglycemia, unspecified; F41.9 Anxiety disorder, unspecified; J45.909 Unspecified asthma, uncomplicated; M19.90 Unspecified osteoarthritis, unspecified site; M81.0 Age-related osteoporosis without current pathological fracture; E03.9 Hypothyroidism, unspecified; E66.01 Morbid (severe) obesity due to excess calories; K21.9 Gastro-esophageal reflux disease without esophagitis; Z85.89 Personal history of malignant neoplasm of other organs and systems; Z90.49 Acquired absence of other specified parts of digestive tract; Z82.49 Family history of ischemic heart disease and other diseases of the circulatory system; Z83.3 Family history of diabetes mellitus; Z88.8 Allergy status to other drugs, medicaments and biological substances; Z88.6 Allergy status to analgesic agent; Z91.040 Latex allergy status; Z79.899 Other long term (current) drug therapy; Z78.9 Other specified health status; Z68.35 Body mass index [BMI] 35.0-35.9, adult; Y93.89 Activity, other specified; Y92.89 Other specified places as the place of occurrence of the external cause; Y99.8 Other external cause status

== ENCOUNTER 2019-10-27 13:15 | Emergency (ER) | payer OTHER ==
[~2019-10-27] VITALS: Wt 102.1 kg
[~2019-10-27 13:15] MED LIST changes: +AUGMENTIN 875-875 MG PO; +DIAZEPAM10 M1 PO; +DOXYCYCLINE100 M3 PO; +SIMVASTATIN20 MG PO; +Synthroid,Levo75 MCG PO; +TRINTELLIX10 MG PO; +VENT7GM INH
== END 2019-10-27 13:38 | disposition home or self-care (01) ==
LOC: ED 13:15
DX: S41.151D Open bite of right upper arm, subsequent encounter (principal); K21.9 Gastro-esophageal reflux disease without esophagitis; J45.909 Unspecified asthma, uncomplicated; F41.9 Anxiety disorder, unspecified; F32.9 Major depressive disorder, single episode, unspecified; Z88.6 Allergy status to analgesic agent; Z88.7 Allergy status to serum and vaccine; Z88.8 Allergy status to other drugs, medicaments and biological substances; Z79.899 Other long term (current) drug therapy; Z79.2 Long term (current) use of antibiotics; Z90.49 Acquired absence of other specified parts of digestive tract; W54.0XXD Bitten by dog, subsequent encounter

== ENCOUNTER 2019-11-07 16:23 | Emergency (ER) | payer OTHER ==
[~2019-11-07] VITALS: Ht 162.5 cm; Wt 93.9 kg
[2019-11-07 16:37] VITALS: BP 136/57
== END 2019-11-07 17:18 | disposition home or self-care (01) ==
LOC: ED 16:23
DX: S61.217A Laceration without foreign body of left little finger without damage to nail, initial encounter (principal); J45.909 Unspecified asthma, uncomplicated; K21.9 Gastro-esophageal reflux disease without esophagitis; M81.0 Age-related osteoporosis without current pathological fracture; Z88.6 Allergy status to analgesic agent; Z91.040 Latex allergy status; Z88.8 Allergy status to other drugs, medicaments and biological substances; Z79.899 Other long term (current) drug therapy; W18.39XA Other fall on same level, initial encounter; Y93.89 Activity, other specified; Y92.89 Other specified places as the place of occurrence of the external cause; Y99.8 Other external cause status

== ENCOUNTER 2020-02-08 17:47 | Emergency (ER) | payer OTHER ==
[~2020-02-08] VITALS: Ht 157.4 cm; Wt 95.7 kg
[2020-02-08 17:58] VITALS: BP 144/76
== END 2020-02-08 21:41 | disposition home or self-care (01) ==
LOC: ED 17:47
DX: S80.02XA Contusion of left knee, initial encounter (principal); S60.222A Contusion of left hand, initial encounter; J45.909 Unspecified asthma, uncomplicated; F41.9 Anxiety disorder, unspecified; F32.9 Major depressive disorder, single episode, unspecified; K21.9 Gastro-esophageal reflux disease without esophagitis; Z88.5 Allergy status to narcotic agent; Z88.8 Allergy status to other drugs, medicaments and biological substances; Z79.899 Other long term (current) drug therapy; Z79.2 Long term (current) use of antibiotics; W19.XXXA Unspecified fall, initial encounter; Y93.89 Activity, other specified; Y92.512 Supermarket, store or market as the place of occurrence of the external cause; Y99.8 Other external cause status

== ENCOUNTER 2020-02-16 21:50 | Emergency (ER) | payer OTHER ==
[~2020-02-16] VITALS: Ht 160 cm; Wt 93.9 kg
[2020-02-16 23:16] LABS: BASO # 0.1 10*3/uL (0.0-0.1); BASO % 0.9 % (0.0-1.0); EOS % 0.6 % (1.0-4.0); HEMATOCRIT 39.1 % (37.0-47.0); LYMPH % 28.5 % (27.0-41.0); MEAN CELL VOLUME 89.7 fl (81.0-99.0); MEAN CORPUSCULAR HGB CONC 31.2 g/dl (33.0-37.0); MEAN PLATELET VOLUME 9.4 fl (9.6-12.3); MONO # 0.5 10*3/uL (0.1-1.0); MONO % 7.3 % (3.0-9.0); NEUT # 4.3 10*3/uL (2.3-7.9); NEUT % 62.4 % (47.0-73.0); PLATELET COUNT AUTOMATED 215 10*3/uL (130-400); RED BLOOD COUNT 4.36 10*6/uL (4.10-5.10); RED CELL DISTRI WIDTH 14.1 % (0-14.5); WHITE BLOOD COUNT 6.8 10*3/uL (4.8-10.8)
[2020-02-16 23:22] LABS: ALBUMIN 3.2 gm/dl (3.1-4.5); ALKALINE PHOSPHATASE 94 U/L (45-117); BUN 14 mg/dl (7-24); CHLORIDE 108 mmol/L (98-107); CREATININE 1.03 mg/dL (0.55-1.02); POTASSIUM 4.2 mmol/L (3.5-5.1); SGOT/AST 12 IU/L (3-35); SGPT/ALT 17 U/L (12-78); SODIUM 141 mmol/L (136-145); TOTAL PROTEIN 7.2 gm/dL (6.4-8.2)
[2020-02-17 02:30] VITALS: BP 140/80
== END 2020-02-17 02:30 | disposition home or self-care (01) ==
LOC: ED 21:50
PROVIDERS: Emergency Medicine
DX: K13.79 Other lesions of oral mucosa (principal); R22.0 Localized swelling, mass and lump, head; J45.909 Unspecified asthma, uncomplicated; K21.9 Gastro-esophageal reflux disease without esophagitis; E03.9 Hypothyroidism, unspecified; E66.01 Morbid (severe) obesity due to excess calories; M19.90 Unspecified osteoarthritis, unspecified site; M81.0 Age-related osteoporosis without current pathological fracture; Z88.6 Allergy status to analgesic agent; Z91.040 Latex allergy status; Z88.7 Allergy status to serum and vaccine; Z88.8 Allergy status to other drugs, medicaments and biological substances; Z79.899 Other long term (current) drug therapy

== ENCOUNTER 2020-03-12 15:08 | Emergency (ER) | payer OTHER ==
[~2020-03-12] VITALS: Ht 162.5 cm; Wt 99.8 kg
[2020-03-12 15:11] VITALS: BP 144/84
== END 2020-03-12 17:58 | disposition home or self-care (01) ==
LOC: ED 15:08
DX: S06.0X0A Concussion without loss of consciousness, initial encounter (principal); S01.01XA Laceration without foreign body of scalp, initial encounter; K21.9 Gastro-esophageal reflux disease without esophagitis; E66.01 Morbid (severe) obesity due to excess calories; M19.90 Unspecified osteoarthritis, unspecified site; J45.909 Unspecified asthma, uncomplicated; Z98.51 Tubal ligation status; Z90.49 Acquired absence of other specified parts of digestive tract; Z98.890 Other specified postprocedural states; Z79.899 Other long term (current) drug therapy; Z88.6 Allergy status to analgesic agent; Z91.040 Latex allergy status; Z88.8 Allergy status to other drugs, medicaments and biological substances; W10.8XXA Fall (on) (from) other stairs and steps, initial encounter; Y93.89 Activity, other specified; Y92.89 Other specified places as the place of occurrence of the external cause; Y99.9 Unspecified external cause status

== ENCOUNTER 2020-03-20 16:57 | Emergency (ER) | payer OTHER ==
[2020-03-20 17:00] VITALS: BP 144/68
[2020-03-20] MEDS ORDERED: ANTIBIOTIC28.4 GM T (18:05)
== END 2020-03-20 18:10 | disposition home or self-care (01) ==
LOC: ED 16:57
DX: S01.01XD Laceration without foreign body of scalp, subsequent encounter (principal); J45.909 Unspecified asthma, uncomplicated; K21.9 Gastro-esophageal reflux disease without esophagitis; M81.0 Age-related osteoporosis without current pathological fracture; F17.200 Nicotine dependence, unspecified, uncomplicated; Z88.6 Allergy status to analgesic agent; Z88.8 Allergy status to other drugs, medicaments and biological substances; Z91.040 Latex allergy status; Z88.7 Allergy status to serum and vaccine; Z79.899 Other long term (current) drug therapy; W10.8XXD Fall (on) (from) other stairs and steps, subsequent encounter

== ENCOUNTER 2020-06-30 18:58 | Emergency (ER) | payer OTHER ==
[~2020-06-30] VITALS: Ht 160 cm; Wt 97.5 kg
[~2020-06-30 18:58] MED LIST changes: +ANTIBIOTIC28.4 GM T
[2020-06-30 19:57] VITALS: BP 133/77
== END 2020-06-30 22:00 | disposition home or self-care (01) ==
LOC: ED 18:58
DX: S69.91XA Unspecified injury of right wrist, hand and finger(s), initial encounter (principal); Z88.8 Allergy status to other drugs, medicaments and biological substances; Z79.899 Other long term (current) drug therapy; Z88.5 Allergy status to narcotic agent; Z91.040 Latex allergy status; X58.XXXA Exposure to other specified factors, initial encounter; Y93.89 Activity, other specified; Y92.89 Other specified places as the place of occurrence of the external cause; Y99.8 Other external cause status

== ENCOUNTER 2021-01-02 20:46 | Emergency (ER) | payer OTHER ==
[2021-01-02 20:52] VITALS: BP 120/62
[2021-01-02 21:24] LABS: BASO # 0.1 10*3/uL (0.0-0.1); BASO % 0.9 % (0.0-1.0); EOS # 0.1 10*3/uL (0.0-0.4); EOS % 0.8 % (1.0-4.0); HEMATOCRIT 38.7 % (37.0-47.0); LYMPH # 1.7 10*3/uL (1.3-4.4); LYMPH % 25.2 % (27.0-41.0); MEAN CORPUSCULAR HGB 27.1 pg (27.0-31.0); MEAN CORPUSCULAR HGB CONC 31.5 g/dl (33.0-37.0); MEAN PLATELET VOLUME 9.7 fl (9.6-12.3); MONO # 0.4 10*3/uL (0.1-1.0); MONO % 6.7 % (3.0-9.0); NEUT # 4.4 10*3/uL (2.3-7.9); NEUT % 66.1 % (47.0-73.0); PLATELET COUNT AUTOMATED 245 10*3/uL (130-400); RED CELL DISTRI WIDTH 14.5 % (0-14.5); WHITE BLOOD COUNT 6.6 10*3/uL (4.8-10.8)
[2021-01-02 21:41] LABS: ALBUMIN 3.3 gm/dl (3.1-4.5); ALKALINE PHOSPHATASE 101 U/L (45-117); BUN 16 mg/dl (7-24); CHLORIDE 105 mmol/L (98-107); CREATININE 1.15 mg/dL (0.55-1.02); POTASSIUM 3.1 mmol/L (3.5-5.1); SGOT/AST 11 IU/L (3-35); SGPT/ALT 15 U/L (12-78); SODIUM 138 mmol/L (136-145); TOTAL PROTEIN 7.6 gm/dL (6.4-8.2)
[2021-01-02 21:42] LABS: TROPONIN I < 0.015 ng/ml (<0.045)
== END 2021-01-02 22:52 | disposition home or self-care (01) ==
LOC: ED 20:46
PROVIDERS: Physician Assistant
DX: F43.0 Acute stress reaction (principal); Z88.5 Allergy status to narcotic agent; Z91.040 Latex allergy status; Z79.899 Other long term (current) drug therapy; Z90.49 Acquired absence of other specified parts of digestive tract; Z98.890 Other specified postprocedural states; Z98.51 Tubal ligation status

== ENCOUNTER 2022-07-10 02:53 | Emergency (ER) | payer OTHER ==
[~2022-07-10 02:53] MED LIST changes: +OMNICEF300 MG PO
[2022-07-10 03:08] VITALS: BP 145/80
== END 2022-07-10 03:33 | disposition home or self-care (01) ==
LOC: ED 02:53
DX: M79.601 Pain in right arm (principal); Z90.49 Acquired absence of other specified parts of digestive tract; Z98.890 Other specified postprocedural states; Z79.899 Other long term (current) drug therapy; Z88.6 Allergy status to analgesic agent; Z88.7 Allergy status to serum and vaccine

== ENCOUNTER → 2022-07-15 | Outpatient (CLI) | payer OTHER | END | disposition home or self-care (01) | LOC: US 10:00 | PROVIDERS: ATTEND Emergency Medicine | DX: M79.601 Pain in right arm (principal); R22.33 Localized swelling, mass and lump, upper limb, bilateral ==

== ENCOUNTER 2023-08-21 14:50 | Emergency (ER) | payer OTHER ==
[~2023-08-21] VITALS: Ht 162.5 cm; Wt 90.3 kg
[2023-08-21 15:32] VITALS: BP 136/79
[2023-08-21] MEDS ORDERED: FUROSEMIDE40 MG PO (15:41)
[2023-08-21] MEDS ORDERED: GABAPENTIN800 MG PO (15:41)
[2023-08-21 16:27] LABS: BASO % 0.7 % (0.0-1.0); EOS # 0.1 10*3/uL (0.0-0.4); EOS % 1.6 % (1.0-4.0); HEMATOCRIT 41.2 % (37.0-47.0); LYMPH # 1.6 10*3/uL (1.3-4.4); LYMPH % 28.6 % (27.0-41.0); MEAN CELL VOLUME 89.8 fl (81.0-99.0); MEAN CORPUSCULAR HGB 29.4 pg (27.0-31.0); MEAN CORPUSCULAR HGB CONC 32.8 g/dl (33.0-37.0); MEAN PLATELET VOLUME 9.7 fl (9.6-12.3); MONO # 0.4 10*3/uL (0.1-1.0); MONO % 7.4 % (3.0-9.0); NEUT # 3.5 10*3/uL (2.3-7.9); NEUT % 61.5 % (47.0-73.0); PLATELET COUNT AUTOMATED 226 10*3/uL (130-400); RED BLOOD COUNT 4.59 10*6/uL (4.10-5.10); RED CELL DISTRI WIDTH 13.6 % (0-14.5); WHITE BLOOD COUNT 5.7 10*3/uL (4.8-10.8)
[2023-08-21 16:51] LABS: ALKALINE PHOSPHATASE 92 U/L (46-116); BUN 9 mg/dl (9-23); CHLORIDE 108 mmol/L (98-107); POTASSIUM 3.6 mmol/L (3.4-5.1); SGPT/ALT 8 U/L (5-49); TOTAL PROTEIN 7.3 gm/dL (6.0-8.0)
[2023-08-21] MEDS ORDERED: PREDNISONE10 M1 PO (18:02)
== END 2023-08-21 18:13 | disposition home or self-care (01) ==
LOC: ED 14:50
PROVIDERS: Nurse Practitioner
DX: J45.901 Unspecified asthma with (acute) exacerbation (principal); F41.9 Anxiety disorder, unspecified; F32.A Depression, unspecified; K21.9 Gastro-esophageal reflux disease without esophagitis; Z87.442 Personal history of urinary calculi; Z88.6 Allergy status to analgesic agent; Z91.040 Latex allergy status; Z88.7 Allergy status to serum and vaccine; Z88.8 Allergy status to other drugs, medicaments and biological substances; Z90.49 Acquired absence of other specified parts of digestive tract; Z90.89 Acquired absence of other organs; Z98.51 Tubal ligation status; Z98.890 Other specified postprocedural states; F17.290 Nicotine dependence, other tobacco product, uncomplicated

== ENCOUNTER 2023-09-19 22:25 | Emergency (ER) | payer OTHER ==
[~2023-09-19] VITALS: Ht 162.5 cm; Wt 91.6 kg
[~2023-09-19 22:25] MED LIST changes: +GABAPENTIN800 MG PO; +PREDNISONE10 M1 PO
[2023-09-19 22:44] VITALS: BP 119/73
== END 2023-09-20 02:39 | disposition home or self-care (01) ==
LOC: ED 22:25
DX: S43.401A Unspecified sprain of right shoulder joint, initial encounter (principal); J45.909 Unspecified asthma, uncomplicated; F41.9 Anxiety disorder, unspecified; F32.A Depression, unspecified; K21.9 Gastro-esophageal reflux disease without esophagitis; Z87.442 Personal history of urinary calculi; Z88.6 Allergy status to analgesic agent; Z91.040 Latex allergy status; Z88.7 Allergy status to serum and vaccine; Z88.8 Allergy status to other drugs, medicaments and biological substances; Z90.49 Acquired absence of other specified parts of digestive tract; Z90.89 Acquired absence of other organs; Z98.890 Other specified postprocedural states; Z98.51 Tubal ligation status; X58.XXXA Exposure to other specified factors, initial encounter; Y93.89 Activity, other specified; Y92.89 Other specified places as the place of occurrence of the external cause; Y99.8 Other external cause status

== ENCOUNTER → 2023-11-28 | Outpatient (CLI) | payer OTHER | END | disposition home or self-care (01) | LOC: US 14:55 | PROVIDERS: ATTEND Physician Assistant | DX: M79.605 Pain in left leg (principal) ==

== ENCOUNTER 2023-12-04 16:18 | Emergency (ER) | payer OTHER ==
[~2023-12-04] VITALS: Ht 154.9 cm; Wt 94.3 kg
[2023-12-04 16:28] VITALS: BP 139/80
[2023-12-04] MEDS ORDERED: diphenhydrAMINE hydrochloride 25 MG CAP PO ONE ×3 (16:35→17:40)
== END 2023-12-04 18:42 | disposition home or self-care (01) ==
LOC: ED 16:18
DX: T78.49XA Other allergy, initial encounter (principal); J45.909 Unspecified asthma, uncomplicated; F41.9 Anxiety disorder, unspecified; F32.A Depression, unspecified; K21.9 Gastro-esophageal reflux disease without esophagitis; Z87.442 Personal history of urinary calculi; Z88.6 Allergy status to analgesic agent; Z91.040 Latex allergy status; Z88.8 Allergy status to other drugs, medicaments and biological substances; Z88.7 Allergy status to serum and vaccine; Z90.49 Acquired absence of other specified parts of digestive tract; Z90.89 Acquired absence of other organs; Z98.51 Tubal ligation status; Z98.890 Other specified postprocedural states; X58.XXXA Exposure to other specified factors, initial encounter

== ENCOUNTER 2024-03-25 18:35 | Emergency (ER) | payer OTHER ==
[~2024-03-25] VITALS: Ht 160 cm
[2024-03-25 18:51] VITALS: BP 110/53
[2024-03-25 19:16] LABS: BASO # 0.1 10*3/uL (0.0-0.1); BASO % 0.8 % (0.0-1.0); EOS # 0.1 10*3/uL (0.0-0.4); EOS % 0.8 % (1.0-4.0); HEMATOCRIT 41.5 % (37.0-47.0); LYMPH # 1.9 10*3/uL (1.3-4.4); LYMPH % 30.6 % (27.0-41.0); MEAN CELL VOLUME 89.6 fl (81.0-99.0); MEAN CORPUSCULAR HGB 28.1 pg (27.0-31.0); MEAN CORPUSCULAR HGB CONC 31.3 g/dl (33.0-37.0); MEAN PLATELET VOLUME 9.6 fl (9.6-12.3); MONO # 0.5 10*3/uL (0.1-1.0); MONO % 7.8 % (3.0-9.0); NEUT # 3.7 10*3/uL (2.3-7.9); NEUT % 59.7 % (47.0-73.0); PLATELET COUNT AUTOMATED 198 10*3/uL (130-400); RED BLOOD COUNT 4.63 10*6/uL (4.10-5.10); RED CELL DISTRI WIDTH 14.5 % (0-14.5); WHITE BLOOD COUNT 6.3 10*3/uL (4.8-10.8)
[2024-03-25 19:37] LABS: POTASSIUM 4.2 mmol/L (3.4-5.1); TOTAL PROTEIN 6.9 gm/dL (6.0-8.0)
[2024-03-25] MEDS ORDERED: methylPREDNISolone sod succ 125 MG VIAL IM ONE (21:45)
[2024-03-25] MEDS ORDERED: METHOCARBAMOL 500 MG TAB PO ONE (21:45)
[2024-03-25] MEDS ORDERED: PREDNISONE20 M1 PO (21:49)
[2024-03-25] MEDS ORDERED: METHOCARBAMOL500 M1 PO (21:49)
[2024-03-25] MEDS ORDERED: Cyclobenzaprine Hydrochlorid 10 MG TAB PO ONE (21:55)
[2024-03-25] MEDS ORDERED: CYCLOBENZAPRINE10 MG PO (21:56)
== END 2024-03-25 22:10 | disposition home or self-care (01) ==
LOC: ED 18:35
PROVIDERS: Internal Medicine
DX: R07.89 Other chest pain (principal); N18.32 Chronic kidney disease, stage 3b; J45.909 Unspecified asthma, uncomplicated; F41.9 Anxiety disorder, unspecified; F32.A Depression, unspecified; K21.9 Gastro-esophageal reflux disease without esophagitis; Z87.442 Personal history of urinary calculi; Z91.040 Latex allergy status; Z88.6 Allergy status to analgesic agent; Z88.7 Allergy status to serum and vaccine; Z90.49 Acquired absence of other specified parts of digestive tract; Z90.89 Acquired absence of other organs; Z98.51 Tubal ligation status; Z98.890 Other specified postprocedural states

== ENCOUNTER 2024-08-26 14:02 | Emergency (ER) | payer OTHER ==
[~2024-08-26] VITALS: Wt 90.7 kg
[~2024-08-26 14:02] MED LIST changes: +CYCLOBENZAPRINE10 MG PO; +METHOCARBAMOL500 M1 PO; +PREDNISONE20 M1 PO
[2024-08-26 14:09] VITALS: BP 122/65
[2024-08-26] MEDS ORDERED: Acetaminophen/Hydrocodone 5 MG/325 MG TABLET PO ONE (14:20)
[2024-08-26 14:51] LABS: POTASSIUM 4.1 mmol/L (3.4-5.1); TOTAL PROTEIN 7.6 gm/dL (6.0-8.0)
[2024-08-26 14:55] LABS: BASO # 0.1 10*3/uL (0.0-0.1); BASO % 0.9 % (0.0-1.0); EOS # 0.1 10*3/uL (0.0-0.4); EOS % 0.9 % (1.0-4.0); HEMATOCRIT 42.1 % (37.0-47.0); MEAN CELL VOLUME 87.9 fl (81.0-99.0); MEAN CORPUSCULAR HGB 28.2 pg (27.0-31.0); MEAN CORPUSCULAR HGB CONC 32.1 g/dl (33.0-37.0); MEAN PLATELET VOLUME 9.8 fl (9.6-12.3); MONO # 0.4 10*3/uL (0.1-1.0); MONO % 7.3 % (3.0-9.0); NEUT # 3.1 10*3/uL (2.3-7.9); NEUT % 54.4 % (47.0-73.0); PLATELET COUNT AUTOMATED 206 10*3/uL (130-400); RED BLOOD COUNT 4.79 10*6/uL (4.10-5.10); RED CELL DISTRI WIDTH 13.6 % (0-14.5); WHITE BLOOD COUNT 5.8 10*3/uL (4.8-10.8)
[2024-08-26 16:13] LABS: BILIRUBIN Negative (Negative); BLOOD Negative (Negative); CLARITY Clear (Clear); COLOR Yellow (Yellow); GLUCOSE Negative (Negative); KETONE Negative (Negative); LEUKO ESTERASE Trace (Negative); NITRITE Negative (Negative); PH 5.5 (4.5-8.0); SPECIFIC GRAVITY <= 1.005 (1.001-1.030); UROBILINOGEN 0.2 E.U./dl (0.0-1.0)
[2024-08-26] MEDS ORDERED: HYDROCOD-HOMAT1 EACH PO (17:42)
== END 2024-08-26 18:19 | disposition home or self-care (01) ==
LOC: ED 14:02
PROVIDERS: Emergency Medicine
DX: S16.1XXA Strain of muscle, fascia and tendon at neck level, initial encounter (principal); S39.012A Strain of muscle, fascia and tendon of lower back, initial encounter; F32.A Depression, unspecified; E78.5 Hyperlipidemia, unspecified; E03.9 Hypothyroidism, unspecified; K21.9 Gastro-esophageal reflux disease without esophagitis; Z87.442 Personal history of urinary calculi; Z88.8 Allergy status to other drugs, medicaments and biological substances; Z91.048 Other nonmedicinal substance allergy status; Z88.6 Allergy status to analgesic agent; Z91.040 Latex allergy status; Z88.7 Allergy status to serum and vaccine; Z90.49 Acquired absence of other specified parts of digestive tract; Z90.89 Acquired absence of other organs; Z98.890 Other specified postprocedural states; Z79.899 Other long term (current) drug therapy; V89.2XXA Person injured in unspecified motor-vehicle accident, traffic, initial encounter; Y93.89 Activity, other specified; Y92.481 Parking lot as the place of occurrence of the external cause; Y99.8 Other external cause status